=== PATIENT | female | born 1940 | race Caucasian/White ===

== ENCOUNTER 2019-11-03 10:13 | Outpatient (CLI) | payer MEDICARE ==
--- NOTE | 2019-11-03 15:16 | CONSULTATION NOTE ---
Palliative Care Consultation - Referral Referring Provider: Dr. 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 The patient had previously been residing with her nephew, Urbano who has been her primary caregiver for the last 9 years. She has been receiving supplemental caregiving within the home so that she had supervision as her dementia progressed. However, she demonstrated resistance to care with several home caregivers. She typically 90% of the time would not have any episodes of agitation with her nephew, Urbano. There is one episode that Urbano recalls that she threw a broom at home and often felt that he was treating her like a child. Even while living with her nephew she would "run away" from home on several occasions. The patient's nephew reports that he noted an increase in cognitive deficits after the patient sustained 2 myocardial infarctions with 3 stents. 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 Urbano reports that the patient began not being able to do tasks that she was previously able to preform such as sending emails. It was becoming harder for the nephew to care for the patient at home and he requested assistance and the patient is currently on [place] PES program. While the nephew was unfortunately hospitalized due to his own health, the patient's was resistant to care and ultimately was hospitalized at [facility] in [place] for approximately 1 month before placement was able to be made at [facility] and she transferred to in September 2019. Staff report that the patient has done well within the facility more so in the last few weeks after she moved to a more functionally active pod within the facility.Caregivers report that the patient at the start of a shift will have "stranger danger" that will subsequently subside and she is receptive to hygiene and caregiving assistance as the day progresses and becomes more comfortable with the staff. Often times in the morning she refused to change out of her pajamas. In the past she has refused to change clothes for over 14 days despite cueing from caregivers within the home. Overall, staff deny any acute behavioral concerns. There is been no change in her weight. She presently weighs 162.8 pounds. She consumes 100% of her meals. 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 Endocrine/Autoimmune: reports: None MRSA Hx?: No Other Past Medical History: [place] Palsy - Past Surgical History General: reports: Other (Tonsillectomy) Cardiovascular: reports: Other (BMS with aspiration fo thrombectomy of RCA 07/2010; JEANCARLOS of ostial LM and AV groove CFX) - Substance History Use: Uses substance without health or social issues: NONE (Former cigarette smoker) Social History - Living Situation Living arrangement: Assisted living Support System: The patient was born in [facility] and then at the age of 6 or 7 her family relocated to [facility].The patient resided in [place] until her 20s. The patient has never and has no children. She has a younger brother and sister, both of whom are living but are not involved in her care. Her health care management has fallen to her nephew, Urbano Bolanos ([phone]) who was designated as her D POA for healthcare decisions.Her nephew, Urbano reports that there was paperwork that designated him as healthcare power of document review attorney but the patient accidentally shredded this believing it was a different document. The patient has always lived with either her mother or her nephew until the last few months. She has solely lived with her nephew Urbano for the last 9 years after her mother with caregiver assistance. 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 The patient is on CO PES and has a design coordinator, Betty at [phone]. Family History - Family History Family History: Mother: , Father: Family History Comment/Other: Brother, alive: [place], Melanoma Sister, alive: [place] Mother: [place] Father: brain aneurysm Medications/Allergies - Medications Home Medications: Ambulatory Orders Medication Instructions Recorded Confirmed Acetaminophen [Tylenol] 325 mg PO Q6H PRN 11/03/19 11/03/19 Aspirin 81 mg PO DAILY 11/03/19 11/03/19 Bisacodyl Supp [Dulcolax Supp] 10 mg MN DAILY PRN MDD if no BM 11/03/19 11/03/19 after MOM Carvedilol [Coreg] 25 mg PO BID 11/03/19 11/03/19 LORazepam [Ativan] 0.5 mg PO Q8H PRN 11/03/19 11/03/19 Lisinopril [Zestril] 20 mg PO DAILY 11/03/19 11/03/19 Loperamide [Imodium] PRN MDD NTE 8tabs/day 11/03/19 Magnesium Hydroxide [Milk of 30 ml PO DAILY PRN MDD if NO BM in 11/03/19 11/03/19 Magnesia] 3 days Quetiapine Fumarate 50 mg PO .AM AND MIDDAY 11/03/19 11/03/19 Quetiapine Fumarate 150 mg PO QPM 11/03/19 11/03/19 Rosuvastatin Calcium 10 mg PO DAILY 11/03/19 11/03/19 - Allergies Allergies/Adverse Reactions: Allergies Allergy/AdvReac Type Severity Reaction Status Date / Time Penicillins Allergy Unknown Verified 11/03/19 17:16 Review of Systems - Constitutional Constitutional: reports: Weight stable. denies: Fatigue, Fever - Eyes Eyes: denies: Corrective lenses - Ears, Nose & Throat Ears, Nose & Throat: denies: Hearing loss - Cardiovascular Cardiovascular: denies: Palpitations, Chest pain - Respiratory Respiratory: denies: Cough, Wheezing - Gastrointestinal Gastrointestinal: reports: Good appetite. denies: Abdominal pain, Constipation, Diarrhea - Genitourinary Genitourinary: denies: Dysuria - Musculoskeletal Musculoskeletal: denies: Assistive devices - Integumentary Integumentary: denies: Rash - Neurological Neurological: reports: Memory problems - Psychiatric Psychiatric: reports: Behavior disturbances. denies: Depression - Endocrine Endocrine: denies: Diabetes type 2 - Hematologic/Lymphatic Hematologic/Lymphatic: denies: Recurrent infections - All Other Systems All Other Systems: reports: Reviewed and negative (ROS limited as patient is a poor historian due to dementia.) Physical Exam - Vital Signs Temperature: 36.5 C - Physical Exam General Appearance: positive: No acute distress, Alert, Other (well groomed,) Eyes Bilateral: positive: Normal inspection ENT: positive: No signs of dehydration Respiratory: positive: Other (visible even fall and rise of chest with no audible adventagous sounds) Abdomen: positive: Obese Skin: positive: Other (visible skin intact) Extremities: positive: Other (no visible BLE edema) Neurologic/Psychiatric: positive: Disoriented to place, Disoriented to time, Other (conversant and pleasant until asked to assess with exam and vital signs--at that time became suspicious and declined evaluation and was adamant "it doesn't need to be done.") Palliative Care - POLST Patient has POLST: No Pain: No pain Nausea: None Anorexia: None Sleep: Sleeps well Constipation: No Performance Status: The patient is ambulatory without an assistive device. No recent falls. She has a history of paranoia and agitation that is presently controlled due to dementia. She requires assistance with continence care. She is continent of bowel and bladder. She is able to self feed. FAST 6B - Palliative Care Discussion: This is a 78-year-old female who has had a progressive cognitive decline over the last decade. She has developed behavioral disturbances due to her dementia such as agitation and paranoia. Presently her symptoms are controlled with quetiapine as routinely scheduled. The patient had been residing with her nephew who is acting responsible republican for the patient. The patient has 2 living siblings, a younger brother and sister, but due to hostile feelings the patient has not had contact or interaction with the siblings. Her nephew, Urbano has been overseeing her medical management and she had lived with him for 9 years until she transitioned to [facility] in September 2019. He had notarized documents obtained from his father and other aunt stating that they do not wish to participate in the patient's care and is looking to request copies of these letters for documentation given the patient had a healthcare power of document review attorney directive that she subsequently shredded.The patient demonstrates hesitancy to meeting new people and was resistant to a physical examination by this CARBURIZING FURNACE OPERATOR today.She presently does not have an official D POA and does not have a POLST on file. Impression and Recommendations - Palliative Care Impression: This is a 78-year-old woman with moderate dementia, likely mixed given her significant Cardiovascular history of multiple MIs and PAD, F AST 6B. She is displayed in the past episodes of agitation and has responded well to quetiapine for symptom management. She does present with paranoia and a suspicious nature due to her underlying dementia but has been redirectable according to staff report. Palliative care to continue to build rapport, explore goals of care, and provide symptom management and anticipatory guidance. Recommendations/Counseling Done: 1. Dementia, likely mixed with behavioral disturbance. Chronic. Progressive. Supportive Care. Fall precautions. On no disease modifying agents. Continue Quetiapine 50mg at 8AM and 1400 and 150mg at bedtime. Has a history of agitation and wandering as well as noted paranoia on examination today. Add Lorazepam 0.5 mg administer every 8 hours as needed for agitation or anxiety due to patient's past behavioral reports so it is available if patient becomes distressed. Reviewd purpose, dose and side effects of lorazepam with nephew and in agreement to proceed. Given the patient's age, dementia and chronic co-morbidities, a gradual decline is expected. 2. CAD. s/p [place]. No cardiac awareness. Continue ASA 81mg daily for cardiac prophylaxis. Continue coreg 25mg BID and rosuvastatin 10mg as ordered. 3. HTN. Continue lisinopril 20mg as ordered. Unable to assess blood pressure today due to patient's resistance despite multiple varied attempts. Continue to monitor BP trends and adjust antihypertensive medications as needed. 4. Advanced care planning. Amrit's nephew, Urbano has been acting as DPOA and has notarized paperwork from the patient's siblings stating that they decline to participate in her care. The patient herself does not have insight into her medical conditions or management. Urbano is going to obtain these letters to provide to palliative care for decision making moving forward. Discussed following up with Betty at [facility] regarding if should move forward with possible guardianship or if legally the notarized paperwork from the siblings would be appropriate in the healthcare agent hierarchy to default to Urbano. Provided supportive listening. Offered palliative care social work for support and assistance and Urbano in agreement and will refer. Time Spent: Total time spent 30 with greater than 50% of time spent in counseling and coordination of care with patient and caregiving staff at facility; examination of the patient; medication reconciliation; symptom management and anticipatory guidance. Spent 35 minutes on chart review of prior medical records. CPT 16333 POC reviewed with nephew/stated Urbano WILKINS via phone and in agreement with POC and reviewed palliative philosophy. disclaimer: The chart note was formulated using voice recognition technology and unfortunately sound alike errors may occur.
== END 2019-11-03 10:14 | disposition home or self-care (01) ==
LOC: PC 10:13
PROVIDERS: ATTEND Family Medicine
DX: Z51.5 Encounter for palliative care (principal); F03.91 Unspecified dementia, unspecified severity, with behavioral disturbance; I25.10 Atherosclerotic heart disease of native coronary artery without angina pectoris; I10 Essential (primary) hypertension; I25.2 Old myocardial infarction; Z79.899 Other long term (current) drug therapy; Z79.82 Long term (current) use of aspirin
CPT/HCPCS: 99358

== ENCOUNTER 2019-12-18 09:40 | Outpatient (CLI) | payer MEDICARE ==
--- NOTE | 2019-12-18 12:25 | CONSULTATION NOTE ---
Palliative Care Follow Up - Referral Referring Provider: Dr. Chema Morrison Time of Visit: [id number] Referral setting: Assisted living Referral Reason: Skin changes feet/Blister left foot/Dementia - Information Sources Records reviewed: Previous records reviewed History/Review of Systems obtained from: Patient, Family (nephew via Urbano hampton), Nursing Exam limitations: Clinical condition (Advanced dementia) - History of Present Illness Update Brief HPI Update: This is a 79-year-old female who was seen and evaluated today at [facility] unit for evaluation of lower extremity edema, blister to left foot, skin changes to feet and dementia with behavioral disturbances. Staff reports that the patient developed some changes to her to her feet over the past few days and developed some blisters.She developed a blister to her left dorsal aspect of her foot that subsequently has popped. Nursing staff wishes for this to be evaluated. It is difficult at times to assess the patient as she can be resistant to care. She has a history of being agitated and combative. She was hospitalized at [facility] in [place] for approximately 1 month and due to multiple circumstances before her placement at [facility] in September 2019.The staff report at times the patient can be redirected or Enticed with liquids or food for cooperation. She is presently on quetiapine 50 mg in the morning, 50 mg in the afternoon and 150 mg in the evening. The patient has not been wearing shoes for approximately 1 month and has been wearing nonskid socks. The blister that has opened is getting stuck to the socks as the patient is not allowing for her routine care to the site. No evidence of spreading redness reported by the staff. She has had a rash under her breasts for approximately 1 month and has been receiving nystatin powder application. Staff reports that this will improve and then reappear again. Nephew reports that the patient does not have a history of diabetes or impaired fasting glucose when last evaluated approximately 1 year ago. The patient has some evidence of lower extremity edema with blistering. She typically sits out in the common area during the day without her feet being elevated. Her weight has remained stable presently at 162.8 pounds.Her nephew reports that for most of her life she has weighed greater than 180 pounds. She has been as low as 155lb. Today, the patient is seen in the common area in a side chair with her arms folded across her chest and one leg propped up over the arm of the chair. She is reluctant to be evaluated and resistant to having her vital signs taken. Patient has a past medical history of SMA stenosis, myocardial infarction x2 with stenting, coronary artery disease, hypertension, peripheral arterial disease agitation, hearing loss. Social History - Living Situation Living arrangement: Assisted living Support System: The patient was born in [facility] and then relocated when she was of school-age to [facility]. The patient resided in [place] until her 20s. She is never nor had any children. She has a brother and sister, both of whom are living but are not involved in her care. Her health care m anagement has fallen to her nephew, Urbano Bolanos at [phone] who is her designated D POA. The patient's siblings have each provided notarized documentation for fitting their rights to making medical decisions on the patient.The patient has only ever lived independently for approximately 2 years. Otherwise, she lives with her mother or her nephew. The patient is on [place] PES and has a car servicer, Betty at [phone]. Medications/Allergies - Medications Home Medications: Ambulatory Orders Medication Instructions Recorded Confirmed Acetaminophen [Tylenol] 325 mg PO Q6H PRN 11/03/19 11/03/19 Aspirin 81 mg PO DAILY 11/03/19 11/03/19 Bisacodyl Supp [Dulcolax Supp] 10 mg MD DAILY PRN MDD if no BM 11/03/19 11/03/19 after MOM Carvedilol [Coreg] 25 mg PO BID 11/03/19 11/03/19 LORazepam [Ativan] 0.5 mg PO Q8H PRN 11/03/19 11/03/19 Lisinopril [Zestril] 20 mg PO DAILY 11/03/19 11/03/19 Loperamide [Imodium] PRN MDD NTE 8tabs/day 11/03/19 Magnesium Hydroxide [Milk of 30 ml PO DAILY PRN MDD if NO BM in 11/03/19 11/03/19 Magnesia] 3 days Quetiapine Fumarate 50 mg PO .AM AND MIDDAY 11/03/19 11/03/19 Quetiapine Fumarate 150 mg PO QPM 11/03/19 11/03/19 Rosuvastatin Calcium 10 mg PO DAILY 11/03/19 11/03/19 Nystatin 1 applic TP BID 12/18/19 12/18/19 - Allergies Allergies/Adverse Reactions: Allergies Allergy/AdvReac Type Severity Reaction Status Date / Time Penicillins Allergy Unknown Verified 11/03/19 17:16 Review of Systems - Constitutional Constitutional: reports: Weight stable (weight 162.8lb). denies: Fever - Eyes Eyes: denies: Corrective lenses - Ears, Nose & Throat Ears, Nose & Throat: reports: Hearing loss - Cardiovascular Cardiovascular: reports: Edema. denies: Palpitations, Chest pain - Respiratory Respiratory: denies: Cough, SOB at rest - Gastrointestinal Gastrointestinal: reports: Good appetite. denies: Abdominal pain, Constipation, Diarrhea - Genitourinary Genitourinary: denies: Dysuria - Musculoskeletal Musculoskeletal: denies: Joint pain, Assistive devices - Integumentary Integumentary: reports: Rash (rash to toes and under breasts), Other (open blister to left foot) - Neurological Neurological: reports: Memory problems - Psychiatric Psychiatric: reports: Aggitation - Endocrine Endocrine: denies: Diabetes type 2 - Hematologic/Lymphatic Hematologic/Lymphatic: denies: Recurrent infections - All Other Systems All Other Systems: reports: Reviewed and negative (ROS limited as patient is a poor historian due to dementia.) Physical Exam - Physical Exam General Appearance: positive: No acute distress, Alert, Other (well groomed and appears stated age; nonskid socks on feet) Eyes Bilateral: positive: Normal inspection ENT: positive: Hearing loss Neck: positive: No JVD, Trachea midline Cardiovascular: positive: Regular rate & rhythm, Other (unable to palpate pedal pulses due to edema) Respiratory: positive: No respiratory distress, Breath sounds nml. negative: Rales Abdomen: positive: Non-tender, Soft, Nml bowel sounds, Obese Skin: positive: Other ((1)open blister appx 2cm x 3cm to dorsal aspect of left foot that is pink and without slough that is well approximated without surrounding erythema (2) Declined evaluation of skin under bliateral breasts (3) erythema to base of toes and between digits consistent with Candidiasis) Extremities: positive: Pedal edema (+1 BLE edema with noted small blisters to the dorsal aspect close to toes on right foot) Neurologic/Psychiatric: positive: Disoriented to place, Disoriented to time, Other (Suspicious and underlying paranoia) Comments/Other: Refused vital signs Palliative Care - POLST Patient has POLST: Yes POLST Status: DNR, Selective Treatment Pain: No pain Constipation: No Performance Status: Patient is ambulatory without any assistive device. No recent falls. She has a history of paranoia and agitation due to dementia. She requires assistance with continence care. She is continent of bowel and bladder. She is able to self feed. F AST 6B - Palliative Care Discussion: The patient has had a progressive cognitive decline over the last decade. She developed behavioral disturbances due to her dementia with agitation and paran oia. Her symptoms are overall controlled with quetiapine routinely scheduled and becoming familiar with her caregivers within her assisted living environment.The patient's nephew, Urbano has been overseeing her medical management as she has lived with him for the last 9 years until she transition to [facility] in September 2019. Palliative care has to notarized documents from the patient's brother and sister relating that they do not wish to participate in the medical management of the patient as the siblings are all estranged. Therefore, the patient's nephew is her next of kin and therefore may act as her healthcare agent. Reviewed POLST today with patient's nephew. Patient's nephew grappling with making decisions as the patient would deflect and never wish to make a decision. This was also demonstrated by the fact that she never lived independently for most of her life. Upon review of POLST nephew, Urbano elects to move forward with patient as DN AR with selective treatment, antibiotic therapy for symptom management and defers regarding artificial nutrition by tube at the present time and wishes to address if the situation arises. Impression and Recommendations - Palliative Care Impression: This is a 78-year-old female with advanced dementia, likely mixed given her cardiovascular history with multiple MIs and PAD, F AST 6B.Then blister to her left Today she demonstrated signs of agitation as she did not wish to have a physical exam. She has lower extremity edema with a dorsal foot requiring home health nursing for further management. Palliative care to continue to explore goals of care and provide symptom management and anticipatory guidance. Recommendations/Counseling Done: 1. Bilateral lower extremity edema. History of PAD per cardiology notes with no GOLDY on file. No history of congestive heart failure. Initiate ALISA hose to be applied every morning and removed 2 PM for reduction of edema. Request that facility when they measure the patient if she is in between sizes to go with the largest size.Request that home health nursing to be involved for management and to perform GOLDY and if GOLDY equal to or greater than 0.8 to apply 2 layer light compression wraps to the lower extremities. Continue to monitor. 2. Skin candidiasis to feet as well as under breasts. Continue nystatin powder as ordered under bilateral breasts. Initiate nystatin powder application twice daily to bilateral feet and between toes until symptoms resolve. Patient does not have a history of diabetes mellitus. If no improvement after 1 month or notified sooner if worsening symptoms then consider evaluation with hemoglobin A1c and if resistant to treatment administration of difclucan with statin being held for resolution. 3. Blister to left dorsal foot. Likely due to underlying edema. Cleanse site with normal saline, pat dry, apply triple antibiotic ointment to site and cover with foam border dressing every 3 days or as needed if saturated. Request home health nursing to follow for management. 4. Coronary artery disease. Status post SD. No cardiac awareness. Continue aspirin 81 mg daily for cardiac prophylaxis. Continue Coreg 25 mg twice daily and rosuvastatin 10 mg daily as ordered. 5.Dementia, likely mixed with behavioral disturbances. Chronic. Progressive. Supportive care. Fall precautions. On no disease modifying agents. Continue quetiapine 50 mg in the a.m. and afternoon with 150 mg at bedtime. Has used Lorazepam 0.5 mg 3 times in the last 30 days and no need for further adjustment at this time. Given the patient's age, dementia and chronic comorbidities a gradual decline as expected. 6.Advance care planning. ERIKA reviewed with Urbano lovell who is healthcare agent as authorized by [facility] [phone] as the patient's siblings have notarized documents indicated they do not want involvement in the patient's care. Provided copies of these notarized documents to [facility]. ERIKA completed as DN AR with selective measures. This was performed over the phone with verbal consent. To send a copy to Urbano who is aware that he needs to sign and return to palliative care to formalize the document.Supportive listening provided. FACE TO FACE: It would be extremely taxable event for the patient to leave the facility and requires home health nursing for management of lower extremity edema and open blister to her left foot for wound management. Request that home health nursing perform GOLDY and apply a 2 layer light compression wrap to lower extremities if GOLDY is greater than or equal to 0.8 Time Spent: CPT 14538 Plan of care reviewed with nursing staff with understanding verbalized. Provided notarized documents to [facility] to have on file as well as original document of POLST completed with liliya/Urbano HERRERA. Plan of care reviewed with Urbano lovell via phone and in agreement with plan moving forward. Questions answered and addressed. Disclaimer: The chart note was formulated using voice recognition technology and unfortunately sound alike errors may occur.
== END 2019-12-18 09:41 | disposition home or self-care (01) ==
LOC: PC 09:40
PROVIDERS: ATTEND Nurse Practitioner Family
DX: Z51.5 Encounter for palliative care (principal); F03.90 Unspecified dementia, unspecified severity, without behavioral disturbance, psychotic disturbance, mood disturbance, and anxiety; R60.0 Localized edema; B37.2 Candidiasis of skin and nail; L98.8 Other specified disorders of the skin and subcutaneous tissue; E11.9 Type 2 diabetes mellitus without complications; I10 Essential (primary) hypertension; I73.9 Peripheral vascular disease, unspecified; H91.90 Unspecified hearing loss, unspecified ear; I25.10 Atherosclerotic heart disease of native coronary artery without angina pectoris; I25.2 Old myocardial infarction; Z66 Do not resuscitate; Z95.5 Presence of coronary angioplasty implant and graft; Z79.82 Long term (current) use of aspirin

== ENCOUNTER 2020-03-08 13:10 | Outpatient (CLI) | payer MEDICARE ==
--- NOTE | 2020-03-08 17:15 | CONSULTATION NOTE ---
Palliative Care Follow Up - Referral Referring Provider: Dr. Chema Morrison Time of Visit: Initated 1309 Referral setting: Assisted living Referral Reason: Dementia/Weight gain - Information Sources Records reviewed: Previous records reviewed History/Review of Systems obtained from: Patient, Caregiver, Nursing Exam limitations: Clinical condition (Advanced Dementia) - History of Present Illness Update Brief HPI Update: This is a 79-year-old female who was seen in follow-up today at [facility] for follow-up regarding dementia with behavioral disturbances, weight gain, and blister to left leg. The patient has a history of developing blisters to her lower extremities. In December 2019 she was initiated on home health nursing due to a blister to her left dorsal foot with subsequent resolution. Reported on 02/16 the patient had a large blister to her left lower extremity with multiple blisters. She has been compliant overall with her compression stockings. She was initiated on local wound care with wall Aquacel Ag and Mepilex border dressing to be changed every 3 days. This has subsequently resolved. The patient would not allow this [facility] to assess her lower extremities with removal of her compression hose on examination today. The patient has had a trend up in her weight since moving into [facility]. She is presently on meal monitoring and typically consumes 100% of her meals. Staff reports that she is someone who prefers to stay in place and it is difficult for them to get her up if it is not her own accord and desire.The patient weight approximately 160 pounds upon her admission to [facility]. Her present weight is hovering around 180 pounds.She does have some lower extremity edema and his order to have application of compression stockings to be placed in the a.m. and removed in the p.m. The patient is often seen sitting in a primary chair in the common area with 1 leg dangling over the armrest with no elevation to her lower extremities. Staff report that they have not noticed an increase in her lower extremity edema from her typical baseline. The patient has a history of being agitated and combative. She was hospitalized at [facility] in [place] for approximately 1 month due to multiple circumstances before her placement at [facility] in September 2019. The patient has a good rapport with certain members of the staff and will be open to redirection from those particular individuals. At other times she will be resistant to suggestions and become agitated with staff by trying to strike out. She is presently on quetiapine 50 mg in the morning, 50 mg in the afternoon, and 150 mg in the evening. She has an order for as needed Lorazepam that has not been administered upon review of the MAR. There is a another resident in home place that the patient typically will respond to if he offer suggestions, Roscoe. The staff report that "love-hate relationship." The patient is seen sitting in her usual chair in the common area with a blanket over her legs. Both legs are situated on the floor. As she is resistant to allowing this LEAD SPRINKLER to take her vital signs this was obtained prior to the visit by facility staff. She is initially suspicious and reluctant to be evaluated stating "I do not need that." Past Medical History: Patient has a past medical history of SMA stenosis, myocardial infarction x2 with stenting, coronary artery disease, hypertension, peripheral artery disease, agitation, hearing loss, dementia. Social History - Living Situation Living arrangement: Assisted living Support System: The patient never and has no children. She has a brother and sister, both who are living but are not involved in her care. Her health care management has fallen to her nephew, Urbano Bolanos at [phone] who is her designated D POA. The patient has only ever lived independently for approximately 2 years. Otherwise her entire life she is either live with her mother who is now or her nephew. The patient has been on CO PES and has a finance business partner, Betty at [phone]. Medications/Allergies - Medications Home Medications: Ambulatory Orders Medication Instructions Recorded Confirmed Acetaminophen [Tylenol] 325 mg PO Q6H PRN 11/03/19 03/09/20 Aspirin 81 mg PO DAILY 11/03/19 03/09/20 Bisacodyl Supp [Dulcolax Supp] 10 mg VT DAILY PRN MDD if no BM 11/03/19 03/09/20 after MOM Carvedilol [Coreg] 25 mg PO BID 11/03/19 03/09/20 LORazepam [Ativan] 0.5 mg PO Q8H PRN 11/03/19 03/09/20 Lisinopril [Zestril] 20 mg PO DAILY 11/03/19 03/09/20 Loperamide [Imodium] PRN MDD NTE 8tabs/day 11/03/19 Magnesium Hydroxide [Milk of 30 ml PO DAILY PRN MDD if NO BM in 11/03/19 03/09/20 Magnesia] 3 days Quetiapine Fumarate 50 mg PO .AM AND MIDDAY 11/03/19 03/09/20 Quetiapine Fumarate 150 mg PO QPM 11/03/19 03/09/20 Rosuvastatin Calcium 10 mg PO DAILY 11/03/19 03/09/20 Nystatin 1 applic TP BID 12/18/19 03/09/20 - Allergies Allergies/Adverse Reactions: Allergies Allergy/AdvReac Type Severity Reaction Status Date / Time Penicillins Allergy Unknown Verified 11/03/19 17:16 Review of Systems - Constitutional Constitutional: reports: Weight gain (weight around 180lb). denies: Fever - Eyes Eyes: denies: Corrective lenses - Ears, Nose & Throat Ears, Nose & Throat: reports: Hearing loss. denies: Hearing aids - Cardiovascular Cardiovascular: denies: Palpitations - Respiratory Respiratory: denies: Cough - Gastrointestinal Gastrointestinal: reports: Good appetite. denies: Constipation, Diarrhea, Vomiting - Genitourinary Genitourinary: reports: Incontinence. denies: Dysuria - Musculoskeletal Musculoskeletal: denies: Joint pain, Assistive devices - Integumentary Integumentary: denies: Other (blister to LLE resolved per nursing) - Neurological Neurological: reports: Memory problems - Psychiatric Psychiatric: reports: Anxiety, Aggitation - Endocrine Endocrine: denies: Diabetes type 2 - Hematologic/Lymphatic Hematologic/Lymphatic: denies: Recurrent infections - All Other Systems All Other Systems: reports: Reviewed and negative (ROS is limited as patient is a poor historian due to dementia. ROS supplemented by caregiving staff and nursing.) Physical Exam - Vital Signs Temperature: 97.1 C Pulse Rate: 70 Respiratory Rate: 20 O2 Saturation: 94 (on RA) Blood Pressure: 106/56 - Physical Exam General Appearance: positive: No acute distress, Alert, Other (well groomed and appears stated age) Eyes Bilateral: positive: Normal inspection ENT: positive: No signs of dehydration Neck: positive: Trachea midline Cardiovascular: positive: Regular rate & rhythm Respiratory: positive: No respiratory distress, Breath sounds nml. negative: Rales Abdomen: positive: Non-tender, Soft, Nml bowel sounds, Obese Skin: positive: Other (Compression stockings to BLE--patient would not allow for removal of stockings to evaluate skin--please see nursing notes for full details) Extremities: positive: Pedal edema (+1 BLE edema with compression stockings noted on quick assessment as the patient was resistant to examination) Neurologic/Psychiatric: positive: Disoriented to place, Disoriented to time, Other (Suspicious regarding evaluation and swatted at hands when attempted initial assessment. Patient was open more to assessment after commonly engaging and making remarks about a movie that was on the TV and calmly sitting together.) Palliative Care - POLST Patient has POLST: Yes POLST Status: DNR, Selective Treatment Pain: No pain Constipation: No Performance Status: She is ambulatory without any assistive device. No history of falls. She has a history of paranoia and agitation due to dementia. She requires assistance with continence care which she is resistant to. She has episodes of incontinence with her bladder. She is continent of bowel. She is able to self feed. FAST 6C - Palliative Care Discussion: The patient has had a progressive cognitive decline over the past decade. She has developed behavioral disturbances due to her dementia with agitation and paranoia. She is maintained on routine quetiapine. She responds better to certain caregivers within the assisted living environment that she is familiar with to allow for care. Patient would likely benefit from augmentation with an antidepressant, such as an SSRI for underlying anxiety and agitation. Her nephew/Urbano HERRERA reports that the patient did not tolerate citalopram. He also reports that have been multiple medications tried in the past but does not recall the previous names and will look into this. The patient herself Gordon quite content in her present surroundings. She has a sand shoveler that she has a "love-hate relationship with per the staff report. The patient is consistently resistant to continent care and the staff have to be creative in order to provide assistance and avoid her developing agitation. The patient has consistently been resistant to physical assessment by this LEAD SPRINKLER with repeated suspicion. The patient responded to sand shoveler like presence and after time had elapsed was open to allowing a more thorough physical assessment. Impression and Recommendations - Palliative Care Impression: This is a 79-year-old female who has Moderate dementia, likely mixed given her significant cardiovascular history with a history of being agitated and combative. Presently overall controlled on quetiapine. Noted weight gain with a voracious appetite. Palliative care to continue to build rapport, provide symptom management and anticipatory guidance. Recommendations/Counseling Done: 1. Weight gain. Patient's weight approximately 180 pounds. Has had an approximate 20 pound weight gain since her admission to home [facility]. Meal monitoring indicates that the patient is consuming typically 100% of her meals. Likely multifactorial in nature given her sedentary lifestyle, consistent meal consumption, and some underlying lower extremity edema. Her lower extremity edema appears to be at baseline. If patient has noted increase in lower extremity edema then would consider low-dose diuretic please see diagnosis as noted below. May consider small portions with multivitamin in the future if noted that the patient's underlying dementia is contributing to her forgetting that she has consumed a meal. Continue to monitor weight trends. 2. Bilateral lower extremity edema. No history of congestive heart failure. Lower extremity edema appears to be at baseline. No adventitious lung sounds noted on evaluation. Difficult he with the patient's elevating her lower extremities while at rest due to her underlying dementia. Continue to apply compression hose every morning and remove in the evening for reduction of edema. Continue to monitor weight trends. If noted increase of lower extremity edema and discomfort may consider low-dose diuretic therapy such as furosemide 20 mg for reduction of edema. Continue to monitor. 3. Blister to left lower extremity. Resolved per nursing report. Patient would not allow LEAD SPRINKLER to assess. 4. Dementia, likely mixed with behavioral disturbances. Chronic. Progressive. Supportive care. Fall precautions. On no disease modifying agents. Continue quetiapine 50 mg in the a.m., 50 mg in the afternoon, and 150 mg at bedtime. Max daily dose of quetiapine 300 mg daily. No documented use of Lorazepam for agitation. Given the patient's underlying agitation and likely anxiety would benefit from an SSRI. Patient's nephew/D POA reports that she did not tolerate citalopram. Would consider sertraline as a trial in the future. Given the patient's advanced age, dementia and chronic comorbidities a gradual decline as expected. Time Spent: CPT 60280 Plan of care reviewed with nursing staff with understanding verbalized. Contacted patient's nephew/D ELENAAUrbano via phone and updated regarding the plan of care. Unable to fully discuss entire plan of care as stopped was not fully available. Plan to follow-up for further discussion and Urbano to determine previous antidepression/antianxiety medication that the patient has been on prior and not responded to. Questions answered and addressed. Disclaimer: The chart note was formulated using voice recognition technology and unfortunately sound alike errors may occur.
== END 2020-03-08 13:11 | disposition home or self-care (01) ==
LOC: PC 13:10
PROVIDERS: ATTEND Nurse Practitioner Family
DX: Z51.5 Encounter for palliative care (principal); F03.91 Unspecified dementia, unspecified severity, with behavioral disturbance; R63.5 Abnormal weight gain; R60.0 Localized edema; R23.8 Other skin changes; Z79.899 Other long term (current) drug therapy; Z66 Do not resuscitate

== ENCOUNTER 2020-05-05 09:30 | Outpatient (CLI) | payer MEDICARE, MEDICAID ==
--- NOTE | 2020-05-05 11:48 | CONSULTATION NOTE ---
Palliative Care Follow Up - Referral Referring Provider: Dr. Chema Morrison Time of Visit: In929 Referral setting: Assisted living Referral Reason: Dementia with behavioral disturbances\weight gain - Information Sources Records reviewed: Previous records reviewed History/Review of Systems obtained from: Patient, Caregiver, Nursing Exam limitations: Clinical condition (Advanced dementia) - History of Present Illness Update Brief HPI Update: This is a 79-year-old female who was seen in follow-up today at [facility] for follow-up regarding dementia with behavioral disturbances and weight gain. The patient has a resolved blister to her left lower extremity that has been receiving Aquacel Ag and Mepilex border dressing. Unable to assess this area today as the patient has her compression hose 1 and thermal leggings that will not roll up. The patient did not wish to move from her present spot in the common area to her room. The patient has had a weight gain since moving into home [facility]. She continues to typically consume 100% of her meals. Her weight was approximately 160 pounds upon admission. She is now presently down to 178.6 pounds which is an improvement from prior noted 180 pounds. She does have lower extremity edema and is allowing staff to apply compression stockings in the morning and removed in the evening. Staff will also encourage the patient to elevate her legs when she is sitting in her preferred chair in the common area. However, she likes to cross her legs at the ankles when her legs are elevated. Patient has a history of being agitated and combative. She was hospitalized at [facility] in [place] for approximately 1 month due to multiple circum stances before her placement at [facility] in September 2019. No behavioral concerns reported at the present time outside of her reluctance to allow pericare by facility staff. She continues on quetiapine 50 mg in the morning, 50 mg in the afternoon and 150 mg in the evening. She does have an order for as needed lorazepam that has not needed to be administered upon review of MAR. The patient does have some noted intermittent constipation. Bowel movement ranging from 2 to 4 days. She does have as needed orders for bowel stimulants if she is constipated. However, would benefit from further intervention for prevention of constipation. The patient is sitting in a common chair in the common area with a blanket over her legs with her legs dependent on the floor. At first she was resistant to this SAMPLE TAKER OPERATOR seeing her but warmed up after sitting in her presence and talking about [place] for a length of time. Past Medical History: Patient has a past medical history of SMA stenosis, myocardial infarction x2 with stenting, coronary artery disease, hypertension, peripheral arterial disease, agitation, hearing loss, dementia. Social History - Living Situation Living arrangement: Assisted living Support System: The patient has never and has no children. She has a brother and a sister, both who are living but are not involved in her care. Her health care management has fallen to her nephew, Urbano Bolanos at [phone] who is her designated DPOA. The patient has only ever lived independently for approximately 2 years. Otherwise her entire life she is either live with her mother before her or her nephew. [facility] 2019. The patient has been on CO PES and has a core worker, Betty at [phone]. Her nephew, Urbano continues to call to speak to her regularly on the telephone. Medications/Allergies - Medications Home Medications: Ambulatory Orders Medication Instructions Recorded Confirmed Acetaminophen [Tylenol] 325 mg PO Q6H PRN 11/03/19 03/09/20 Aspirin 81 mg PO DAILY 11/03/19 03/09/20 Bisacodyl Supp [Dulcolax Supp] 10 mg MD DAILY PRN MDD if no BM 11/03/19 03/09/20 after MOM Carvedilol [Coreg] 25 mg PO BID 11/03/19 03/09/20 LORazepam [Ativan] 0.5 mg PO Q8H PRN 11/03/19 03/09/20 Lisinopril [Zestril] 20 mg PO DAILY 11/03/19 03/09/20 Loperamide [Imodium] PRN MDD NTE 8tabs/day 11/03/19 Magnesium Hydroxide [Milk of 30 ml PO DAILY PRN MDD if NO BM in 11/03/19 03/09/20 Magnesia] 3 days Quetiapine Fumarate 50 mg PO .AM AND MIDDAY 11/03/19 03/09/20 Quetiapine Fumarate 150 mg PO QPM 11/03/19 03/09/20 Rosuvastatin Calcium 10 mg PO DAILY 11/03/19 03/09/20 Nystatin 1 applic TP BID 12/18/19 03/09/20 - Allergies Allergies/Adverse Reactions: Allergies Allergy/AdvReac Type Severity Reaction Status Date / Time Penicillins Allergy Unknown Verified 11/03/19 17:16 Review of Systems - Constitutional Constitutional: reports: Weight stable (weight 178.6lb). denies: Fever - Eyes Eyes: denies: Corrective lenses - Ears, Nose & Throat Ears, Nose & Throat: reports: Hearing loss. denies: Hearing aids, Dentures, Dry mouth - Cardiovascular Cardiovascular: reports: Edema. denies: Chest pain - Respiratory Respiratory: denies: Cough - Gastrointestinal Gastrointestinal: reports: Constipation (intermittent with defecation every 2- 4days), Good appetite. denies: Diarrhea, Vomiting - Genitourinary Genitourinary: reports: Incontinence. denies: Dysuria - Musculoskeletal Musculoskeletal: denies: Assistive devices - Neurological Neurological: reports: Memory problems - Psychiatric Psychiatric: reports: Anxiety, Aggitation (controlled) - Endocrine Endocrine: denies: Diabetes type 2 - All Other Systems All Other Systems: reports: Reviewed and negative (ROS is limited as patient is a poor historian due to dementia. ROS supplemented by caregiving staff and nursing.) Physical Exam - Vital Signs Temperature: 35.9 C Pulse Rate: 97 O2 Saturation: 97 (on RA) Blood Pressure: 109/64 - Physical Exam General Appearance: positive: No acute distress, Alert, Other (appears stated age, sitting in common area) Eyes Bilateral: positive: Normal inspection ENT: positive: No signs of dehydration, Other (missing teeth) Neck: positive: Trachea midline Cardiovascular: positive: Regular rate & rhythm Respiratory: positive: No respiratory distress, Breath sounds nml Abdomen: positive: Non-tender, Soft, Nml bowel sounds, Obese Skin: positive: Other (Compression stockings to BLE--patient would not allow for assessment of skin and thermal leggings that were unable to be rolled up---please see nursing notes for full details) Extremities: positive: Pedal edema (+1 BLE edema with compression stockings (baseline)) Neurologic/Psychiatric: positive: Disoriented to place, Disoriented to time, Other (Initially suspicious for evaluation, but patient was open more to assessment after sitting together and discussing her trev memories) Palliative Care - POLST Patient has POLST: Yes POLST Status: DNR, Selective Treatment Pain: No pain Feelings of wellbeing/Perceived Quality of Life: Good Sleep: Sleeps well Constipation: Intermittent constipation Performance Status: Ambulatory without an assistive device. No history of falls. She has a history of paranoia and agitation due to dementia. She requires assistance with continence care which she is resistant to. She has episodes of incontinence with her bladder. She is continent of bowel. She is able to self feed. F AST 6C - Palliative Care Discussion: The patient agitation and anxiety has stabilized on her present regimen of quetiapine without need for breakthrough lorazepam. To reduce her underlying suspicions new faces and providers need to establish a rapport to then allow her to open up, engaged and allow for an assessment. The patient continues to have a good appetite and her weight appears to have stabilized to approximately 178.6 pounds which is a reduction from her previously hovering around 180 pounds. Her lower extremity edema appears to be at baseline and she does not demonstrate any acute concerns nor do her caregivers. Impression and Recommendations - Palliative Care Impression: This is a 79-year-old female with moderate dementia, FAS T6C with a history of being agitated and combative. Presently her behavior is controlled on quetiapine and she appears to be comfortable in her present surroundings. Her history of weight gain appears to have stabilized and she weighs approximately 178.6 pounds presently. Palliative care to continue to provide symptom management and anticipatory guidance. Recommendations/Counseling Done: 1. Weight gain. Patient's weight is approximately 178.6 pounds. On admission to home place she was 160 pounds. Her history of weight gain is likely multifactorial nature given her sedentary lifestyle, 100% meal consumption and lower extremity edema. Her lower extremity edema appears to be remaining at baseline. May consider small portions with multivitamin in the future if her dementia is contributing to her forgetting her meal consumption. Continue to monitor weight trends. 2. Bilateral lower extremity edema. No history of congestive heart failure. Lower extremity edema appears to be at baseline. Continue to apply compression stockings every morning and remove every evening for reduction of edema. Continue to encourage elevation of lower extremities when at last. Continue to monitor weight trends. 3. 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 Chronic. Progressive. Supportive care. Fall precautions. No disease modifying agents. No acute behavioral concerns reported by facility staff. Continue quetiapine 50 mg in the a.m., 50 mg in the afternoon, 150 mg at bedtime. Maximum daily dose of quetiapine is 300 mg daily. No documented use of lorazepam for agitation. If the patient displays increased agitation and underlying anxiety would benefit from introduction of SSRI and will discuss with the patient's nephew/DPOA given patient's prior SSRI use and would consider sertraline. Given the patient's advanced age, dementia and chronic comorbidities a gradual decline is expected. Time Spent: CPT 50088 Plan of care reviewed with nursing staff with understanding verbalized. Questions answered and addressed. Disclaimer: The chart note was formulated using voice recognition technology and unfortunately sound alike errors may occur.
== END 2020-05-05 09:31 | disposition home or self-care (01) ==
LOC: PC 09:30
PROVIDERS: ATTEND Nurse Practitioner Family
DX: Z51.5 Encounter for palliative care (principal); R63.5 Abnormal weight gain; R60.0 Localized edema; F03.91 Unspecified dementia, unspecified severity, with behavioral disturbance; K59.00 Constipation, unspecified; Z66 Do not resuscitate

== ENCOUNTER 2020-06-14 14:30 | Outpatient (CLI) | payer MEDICARE, MEDICAID ==
--- NOTE | 2020-06-14 17:27 | CONSULTATION NOTE ---
Palliative Care Follow Up - Referral Referring Provider: RAMEZ Juna Time of Visit: Iniated 1430 Referral setting: Assisted living Referral Reason: Redness to left foot/constipation/dementia with behavioral disturbances - Information Sources Records reviewed: Previous records reviewed History/Review of Systems obtained from: Patient, Caregiver, Nursing Exam limitations: Clinical condition (Advanced dementia) - History of Present Illness Update Brief HPI Update: This is a 79-year-old female who is seen and evaluated today at [facility] regarding acute concerns with redness to her left foot, constipation and follow-up regarding dementia with behavioral disturbances and history of cutaneous candidiasis with assistance of, EVA Dominguez. The patient has a history of developing blisters to her lower extremities and has had a effective response with Aquacel Ag and Mepilex border dressing in the past and has been followed by home health nursing in the summer 2019. Caregivers reported increased redness to the patient's left foot and there is evidence of an abrasion without discharge. The patient is not denying any acute discomfort to the area per staff report. This was a new finding. The patient has been displaying constipation. She has been requiring dosages of milk of magnesia for defecation. Upon review of MAR she has had 2 doses of milk of magnesia in the month of June. She is typically having small bowel movements and would benefit from a bowel regimen. Initiation of 4 ounces of warm prune juice daily with breakfast has not been adequate in prevention of constipation. The patient would not allow for assessment today of erythema under her bilateral breasts due to cutaneous candidiasis. She is intermittently requiring nystatin powder application. Staff reports that the redness will resolve under her breasts and then several days later will return. They are asking for additional interventions. Patient will often refuse to have her weight obtained. Last weight was documented at 174.4 pounds on 05/31/2020. She has had an overall weight gain since her admission into [facility]. When moving in she weighed approximately 160 pounds. She typically consumes 100% of her meals. She does have some lower extremity edema and has compression stockings ordered however, only one in place to left lower extremity today. The patient is seen in the [place] area in a chair with a blanket over her legs in a dependent position on the floor. She is more cooperative than usual but declines having vitals taken today and her vital signs obtained from staff were reviewed today. Past Medical History: Patient has a past medical history of SMA stenosis, myocardial infarction x2 with stenting, coronary artery disease, hypertension, peripheral arterial disease, agitation, hearing loss, dementia. Social History - Living Situation Living arrangement: Assisted living Support System: The patient is never and has no children. She has a brother and sister, both who are living but are not involved in her care. Her health care management has fallen to her nephew, Urbano Bolanos at [phone] her is her designated DPOA. [facility]. The patient has been on [place] PES and has a safety deposit clerk, Betty at [phone]. Medications/Allergies - Medications Home Medications: Ambulatory Orders Medication Instructions Recorded Confirmed Acetaminophen [Tylenol] 325 mg PO Q6H PRN 11/03/19 06/14/20 Aspirin 81 mg PO DAILY 11/03/19 06/14/20 Bisacodyl Supp [Dulcolax Supp] 10 mg FL DAILY PRN MDD if no BM 11/03/19 06/14/20 after MOM Carvedilol [Coreg] 25 mg PO BID 11/03/19 06/14/20 LORazepam [Ativan] 0.5 mg PO Q8H PRN 11/03/19 06/14/20 Lisinopril [Zestril] 20 mg PO DAILY 11/03/19 06/14/20 Loperamide [Imodium] PRN MDD NTE 8tabs/day 11/03/19 Magnesium Hydroxide [Milk of 30 ml PO DAILY PRN MDD if NO BM in 11/03/19 06/14/20 Magnesia] 3 days Quetiapine Fumarate 50 mg PO .AM AND MIDDAY 11/03/19 06/14/20 Quetiapine Fumarate 150 mg PO QPM 11/03/19 06/14/20 Rosuvastatin Calcium 10 mg PO DAILY 11/03/19 06/14/20 Nystatin 1 applic TP BID 12/18/19 03/09/20 Doxycycline Hyclate 100 mg PO BID 06/14/20 06/14/20 Remedy Skin Repair Cream 1 applic TP DAILY 06/14/20 - Allergies Allergies/Adverse Reactions: Allergies Allergy/AdvReac Type Severity Reaction Status Date / Time Penicillins Allergy Unknown Verified 06/14/20 17:35 Review of Systems - Constitutional Constitutional: reports: Weight loss (174.4lb 05/2020 after weight gain upon admission to facility). denies: Fever - Eyes Eyes: denies: Irritation - Ears, Nose & Throat Ears, Nose & Throat: reports: Hearing loss. denies: Hearing aids - Cardiovascular Cardiovascular: reports: Edema. denies: Chest pain - Respiratory Respiratory: denies: Cough - Gastrointestinal Gastrointestinal: reports: Constipation (requiring use of MOM, see HPI), Good appetite. denies: Abdominal pain, Vomiting - Genitourinary Genitourinary: reports: Incontinence. denies: Dysuria - Musculoskeletal Musculoskeletal: denies: Joint pain - Integumentary Integumentary: reports: Rash, Dryness - Neurological Neurological: reports: Memory problems - Psychiatric Psychiatric: reports: Anxiety, Aggitation (controlled) - Endocrine Endocrine: denies: Hypothyroidism - All Other Systems All Other Systems: reports: Reviewed and negative (ROS is limited as patient is a poor historian due to dementia. ROS supplemented by caregiving staff and nursing.) Physical Exam - Vital Signs Temperature: 36.4 C Pulse Rate: 86 O2 Saturation: 97 Blood Pressure: 119/78 - Physical Exam General Appearance: positive: No acute distress, Alert, Other (appears stated age, sitting in common area, obese) Eyes Bilateral: positive: Normal inspection ENT: positive: No signs of dehydration, Other (missing teeth) Neck: positive: Trachea midline Cardiovascular: positive: Regular rate & rhythm Respiratory: positive: No respiratory distress, Breath sounds nml Abdomen: positive: Non-tender, Soft, Nml bowel sounds, Obese Skin: positive: Other (1) abrasion to left dorsal aspect of foot appx 2cm x 0.5cm with scab formation, without discharge and surrounding darker erythema to toes extending towards ankle appx 10cm in size, warmto touch. Light erythema noted extending past ankle--both areas marked. 2) Cracking skin left foot) Extremities: positive: Pedal edema (+1 BLE edema with compression stockings (baseline) to LLE only) Neurologic/Psychiatric: positive: Disoriented to place, Disoriented to time, Other (Declined vital signs but allowed for assessment when she is often suspicious and will refuse) Palliative Care - POLST Patient has POLST: Yes POLST Status: DNR, Selective Treatment Pain: No pain Performance Status: FAS T 6C - Palliative Care Discussion: The patient continues to have evidence of constipation despite initiation of warm prune juice daily with breakfast. She is requiring as needed ad ministration of milk of magnesia after not having a bowel movement every 3 days and would benefit from further adjustment of her bowel regiment. The patient has an abrasion to the dorsal aspect of her left foot that has subsequently resulted in localized cellulitis without tenderness and noted warmth and erythema upon assessment. The skin to that area is quite cracked and requires increased moisturization. Impression and Recommendations - Palliative Care Impression: This is a 79-year-old female with moderate dementia, F AST 60, with a history of being agitated and combative now with acute cellulitis to her left dorsal foot and constipation. No evidence of acute distress. Her history of weight gain has stabilized and her weight is presently 174.4lb when she allows caregivers to weigh her. Palliative care to continue provide symptom management, care coordination and anticipatory guidance. Recommendations/Counseling Done: 1. Acute cellulitis, left foot. Initiate doxycycline 100 mg twice daily x7 days due to the patient's reported allergy to PCN. Marked area of erythema on the foot and advised nursing staff to evaluate for any spreading redness for further signs and symptoms of infection and to notify PCP of any changes with understanding verbalized. 2. Constipation. Not controlled with initiation of warm prune juice daily with breakfast. Initiate MiraLAX 17 g in 4 ounces of fluid dissolved once daily for prevention of constipation. Hold for loose stools. Continue milk of magnesia as needed and monitor administration. Continue to monitor. 3. Dryness to bilateral lower extremities. Initiate remedy skin repair cream to bilateral feet and lower legs daily for dryness. 4. Cutaneous candidiasis under bilateral breasts. Patient has pendulous breasts sepsis double to candidiasis. Staff have intermittently been using nystatin powder. If obtainable, would recommend transitioning to Interdry fabric that are cut in 2 needed strips to apply under bilateral breasts and are able to be used up to 5 times and not to use this in conjunction with any powder or creams for its wicking abilities. Staff to look into obtainment of Interdry fabric and in the interim to continue application of nystatin powder as needed. 5. 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 Chronic. Progressive. Supportive care. Precautions. On no disease modifying agents. Behavioral concerns are stable at the present time per facility staff. Continue quetiapine 50 mg In the morning, 50 mg in the afternoon, and 150 mg at bedtime. Maximum dose of quetiapine is 300 mg daily. No documented use of lorazepam for agitation upon review of MAR. Given the patient's advanced age, dementia and chronic comorbidities a gradual Landa is expected. Time Spent: CPT 08572 Plan of care reviewed with nursing staff with understanding verbalized. Questions answered and addressed. Message left for patient's nephew/DPOA Urbano Bolanos at [phone] of with generalized message to touch base regarding plan of care and also to confirm if the patient is ever received cephalosporins in the past without incident. Awaiting return call back. Total time spent X with greater than 50% of time spent in counseling family and patient regarding escalation vs de-escalation of care, palliative/hospice philosophy as well as care coordination, review of pain and symptom management and anticipatory guidance. Total time spent X with greater than 50% of time spent in counseling and coordination of care; examination of the patient; medication reconciliation; and reviewing medical records. Total time spent X minutes with greater than 50% of this spent in counseling and coordination of care, review of pain and symptom management and anticipatory guidance.
== END 2020-06-14 14:31 | disposition home or self-care (01) ==
LOC: PC 14:30
PROVIDERS: ATTEND Nurse Practitioner Family
DX: Z51.5 Encounter for palliative care (principal); S90.812A Abrasion, left foot, initial encounter; L03.116 Cellulitis of left lower limb; K59.00 Constipation, unspecified; L85.3 Xerosis cutis; B37.2 Candidiasis of skin and nail; F03.91 Unspecified dementia, unspecified severity, with behavioral disturbance; R60.0 Localized edema; Z66 Do not resuscitate

== ENCOUNTER 2020-08-15 15:00 | Outpatient (CLI) | payer MEDICARE, MEDICAID ==
--- NOTE | 2020-08-15 18:52 | CONSULTATION NOTE ---
Palliative Care Follow Up - Referral Referring Provider: RAMEZ Durand Time of Visit: Initated 1500 Referral setting: Assisted living Referral Reason: HTN/LE edema/Dementia - Information Sources Records reviewed: Previous records reviewed History/Review of Systems obtained from: Patient, Caregiver, Nursing Exam limitations: Clinical condition (Advanced Dementia) - History of Present Illness Update Brief HPI Update: This is a 79-year-old female who was seen and evaluated today at [facility] for follow-up regarding her dementia with behavioral concerns disturbances and lower extremity edema with hypertension. Last month the patient had episodes of hypotension without cardiac complaints and her PCP reduced her lisinopril to 10 mg daily from 20 mg. She continues on Coreg 25 mg twice daily. The patient denies headache or dizziness on assessment today. The patient has a history of lower extremity edema and is mostly compliant with allowing compression stockings to be put in place in the morning and removed in the evening. She has had a gradual weight gain since moving into home [facility] in the spring 2019. She is often not compliant with allowing the staff to obtain her monthly weights. Last weight 184.6 pounds obtained on 08/03/2020. The patient has a history of being agitated and combative. She was hospitalized at [facility] in [place] for approximately a month due to multiple circumstances before placement at [facility] in September 2019. The patient's continues to be compliant with the staff outside of allowing for pericare or routine weights. She continues on [id number] mg in the morning, 50 mg in the afternoon and 150 mg in the evening. She also has lorazepam To be administered as needed for acute anxiety or agitation that has not been utilized this month. Her PCP also initiated her on Namenda starting 08/09/2020 5 mg in the evening Without noted changes in the patient's behavior per caregivers and facility staff. The patient is seen in the common area sitting in her typical chair by the window. She has her compression stockings in place and new slip on shoes that are bedazzled. The patient is conversant with this [facility] but reluctant for examination. No evidence of acute distress. Past Medical History: Patient has a past medical history of SMA stenosis, myocardial infarction x2 with stenting, coronary artery disease, hypertension, peripheral arterial disease, agitation, hearing loss, dementia. . Social History - Living Situation Living arrangement: Assisted living Support System: The patient is never and has no children. Her health care management has fallen to her nephew, Urbano Bolanos at [phone] her is her designated DPOA. [facility]. The patient has been on [place] PES and has a vp data, Betty at [phone]. Medications/Allergies - Medications Home Medications: Ambulatory Orders Medication Instructions Recorded Confirmed Acetaminophen [Tylenol] 325 mg PO Q6H PRN 11/03/19 06/14/20 Aspirin 81 mg PO DAILY 11/03/19 06/14/20 Bisacodyl Supp [Dulcolax Supp] 10 mg SD DAILY PRN MDD if no BM 11/03/19 06/14/20 after MOM Carvedilol [Coreg] 25 mg PO BID 11/03/19 06/14/20 LORazepam [Ativan] 0.5 mg PO Q8H PRN 11/03/19 06/14/20 Lisinopril [Zestril] 10 mg PO DAILY 11/03/19 06/14/20 Loperamide [Imodium] PRN MDD NTE 8tabs/day 11/03/19 Magnesium Hydroxide [Milk of 30 ml PO DAILY PRN MDD if NO BM in 11/03/19 06/14/20 Magnesia] 3 days Quetiapine Fumarate 50 mg PO .AM AND MIDDAY 11/03/19 06/14/20 Quetiapine Fumarate 150 mg PO QPM 11/03/19 06/14/20 Rosuvastatin Calcium 10 mg PO DAILY 11/03/19 06/14/20 Nystatin 1 applic TP BID 12/18/19 03/09/20 Remedy Skin Repair Cream 1 applic TP DAILY 06/14/20 Memantine [Namenda] 5 mg PO QPM 08/16/20 08/16/20 - Allergies Allergies/Adverse Reactions: Allergies Allergy/AdvReac Type Severity Reaction Status Date / Time Penicillins Allergy Unknown Verified 06/14/20 17:35 Review of Systems - Constitutional Constitutional: reports: Weight gain (weight 184.6lb, patient will refuse weights and therefore it is difficult to track weight trends.). denies: Fever - Eyes Eyes: denies: Corrective lenses - Ears, Nose & Throat Ears, Nose & Throat: reports: Hearing loss. denies: Hearing aids, Dentures - Cardiovascular Cardiovascular: reports: Edema. denies: Chest pain - Respiratory Respiratory: denies: Cough - Gastrointestinal Gastrointestinal: reports: Good appetite. denies: Abdominal pain, Constipation (controlled) - Genitourinary Genitourinary: reports: Incontinence. denies: Dysuria - Musculoskeletal Musculoskeletal: denies: Joint pain, Assistive devices - Integumentary Integumentary: reports: Dryness - Neurological Neurological: reports: Memory problems. denies: Headache, Dizziness - Psychiatric Psychiatric: reports: Anxiety, Aggitation (controlled) - Endocrine Endocrine: denies: Hypothyroidism - All Other Systems All Other Systems: reports: Reviewed and negative (ROS is limited as patient is a poor historian due to dementia. ROS supplemented by caregiving staff and nursing.) Physical Exam - Vital Signs Pulse Rate: 71 O2 Saturation: 99 Blood Pressure: 105/51 (VS taken /, patient refused VS today) - Physical Exam General Appearance: positive: No acute distress, Alert, Other (appears stated age, sitting in common area, obese) Eyes Bilateral: positive: Normal inspection ENT: positive: No signs of dehydration, Other (missing teeth) Neck: positive: Trachea midline Cardiovascular: positive: Regular rate & rhythm Respiratory: positive: Other (Declined full assessment) Abdomen: positive: Obese, Other (Declined full assessment) Skin: positive: Other (visible skin intact) Extremities: positive: Pedal edema (visible BLE edema with compression stockings (that appears to be baseline) to BLE) Neurologic/Psychiatric: positive: Disoriented to place, Disoriented to time, Other (Declined vital signs and would not allow for a full assessment stating "I don't need it. I am fine.") Palliative Care - POLST Patient has POLST: Yes POLST Status: DNR, Selective Treatment Performance Status: FAST 6C - Palliative Care Discussion: The patient continues with controlled lower extremity edema based on visualization and positive response with application of compression stockings to both lower extremities. She is not amenable to elevating her lower extremities at rest and typically has her legs in a dependent position resting in a common chair in the common area. She continues to have noted times of hypotension despite recent dose reduction of her lisinopril. Her Coreg 25 mg tablet has been needed be held 5 times in the month of August due to to her hold parameters. The patient herself does not have any cardiac complaints. She may benefit from further dose reduction of her antihypertensive medications. She continues to have some underlying suspicions regarding new caregivers. Typically, the patient will allow an assessment by this WIND FIELD SERVICE MANAGER if sat with an engaging her in conversation for a period of time before attempting an assessment. However, today was not successful. Her underlying anxiety and agitation appears to be controlled with her present regimen of quetiapine without needed breakthrough lorazepam. It is too soon to know if the new addition of Namenda is providing any support for the patient's underlying behavior as it was just initiated. Results - Lab Results Lab results reviewed: Yes Lab and Imaging Results: 08/05/2020 Sodium 142, potassium 4.5, BUN 25, creatinine 0.77, glucose 100, albumin 3.5, alk phos 85, ALT 10, AST 15, WBC C7, H&H 10.6 and 32.8%, platelets 230 Impression and Recommendations - Palliative Care Impression: This is a 79-year-old female with moderate dementia, FAS T6 ED with a history of being agitated and combative. Presently her behaviors are controlled on quetiapine and she is comfortable with the present facility staff. She has had a recent addition of Namenda to her behavioral regimen. Her lisinopril was recently reduced in dose due to recent episodes of hypotension. She may benefit from further dose adjustment of her antihypertensive medication. Palliative care to continue to provide symptom management, care coordination and anticipatory guidance. Recommendations/Counseling Done: 1. Hypertension and in the setting of a history of FL x2. Patient has had her Coreg held 5 times this month upon review of AUG. Her lisinopril was recently reduced to 10 mg daily. Request that blood pressure log be faxed to this WIND FIELD SERVICE MANAGER in 2 weeks for review this may require further reduction of the patient's lis inopril to avoid hypotensive events that may lead to falls. Continue on aspirin therapy for cardiac prophylaxis due to history of FL. Continue Coreg 25 mg twice daily with hold parameters due to history of FL. Patient is without cardiac complaints. Continue to monitor. 2. Bilateral lower extremity edema. No history of congestive heart failure. Lower extremity edema appears to be at baseline. Continue to apply compression stockings every morning and remove every evening for reduction of edema. Continue to encourage elevation of lower extremities when at rest. Continue to monitor weight trends however, this is difficult to obtain as the patient is not often compliant with allowing weight to be obtained. 3. 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 Chronic. Progress [place]. Supportive care. Fall precautions. Present lady on Namenda 5 mg nightly. No acute behavioral concerns reported by facility staff. Continue quetiapine 50 mg in the morning, 50 mg in the afternoon, and 150 mg at bedtime. Max daily dose of quetiapine is 300 mg daily. No documented use of lorazepam for agitation. Patient has had prior SSRI use per her nephew/DPOA's report that has not been effective in the past if increased agitation or anxiety. Continue to monitor response to Namenda. Given the patient's advanced age, dementia and chronic comorbidities a gradual decline is expected. CPT 08592 Plabn Of care reviewed with facility a Angelica VELASQUEZ with questions answered and addressed. Disclaimer: The chart note was formulated using voice recognition technology and unfortunately sound alike errors may occur.
== END 2020-08-15 15:01 | disposition home or self-care (01) ==
LOC: PC 15:00
PROVIDERS: ATTEND Nurse Practitioner Family
DX: Z51.5 Encounter for palliative care (principal); I10 Essential (primary) hypertension; I25.2 Old myocardial infarction; R60.0 Localized edema; F03.91 Unspecified dementia, unspecified severity, with behavioral disturbance; Z66 Do not resuscitate

== ENCOUNTER 2020-10-18 13:30 | Outpatient (CLI) | payer MEDICARE, MEDICAID ==
--- NOTE | 2020-10-18 19:16 | CONSULTATION NOTE ---
Palliative Care Follow Up - Referral Referring Provider: RAMEZ Durand Time of Visit: Redness to foot/Dementia with behavior Referral setting: Assisted living Referral Reason: Redness left foot/Dementia with behavior - Information Sources Records reviewed: Previous records reviewed History/Review of Systems obtained from: Patient, Family (nephew/DPOA Urbano), Caregiver (Kristin), Nursing (EVA Dominguez) Exam limitations: Clinical condition (Advanced dementia and Paranoia) - History of Present Illness Update Brief HPI Update: This is a 79-year-old female who is seen and evaluated today at [facility] for evaluation of her left foot erythema and dementia with behavioral disturbances. The patient has a history of being agitated and combative with underlying paranoia. She was hospitalized at [facility] in [place] for approximately 1 month due to multiple circumstances before placement at [facility] in September 2019. Upon review of patient's medical record while she was at [facility] in [place] she was titrated up on quetiapine and was also receiving Zyprexa for management of her behaviors. Upon initial presentation at [facility] she was also on doxepin for sleep. The patient is presently 1 quetiapine 50 mg in the morning, 50 mg in the afternoon and 150 mg in the evening. She continues to have great resistance to the staff allowing for pericare, personal hygiene, and incontinence care. The patient has had episodes of aggressive behavior towards caregivers such as squeezing their arms and scratching them. It typically requires 3 caregivers to provide assistance with the patient. Despite the above listed behaviors, the patient has not received PRN ativan upon review of MAR for the month of October. The patient Namenda was increased by her PCP on 09/01 to 5 mg twice daily. Facility staff do not note a improvement in the patient's behaviors since initiation of Namenda. Facility staff reported noting erythema to the top of her left foot without tenderness to touch being reported or spreading redness. Facility staff report that the shoes the patient's will wear has evidence of soiling and due to the patient's lower extremity edema is contributing to indentation and they have asked that the facility DPOA/nephew obtain new shoes. The patient is seen in the common area today dressed and pacing. She is opening and closing other patients rooms. She is resistant to approach or sitting down. Despite being a compensatory presents the patient is not open to engaging in a physical examination or allowing vital signs to be obtained. Past Medical History: Patient has a past medical history of SMA stenosis, myocardial infarction x2 with stenting, coronary artery disease, hypertension, peripheral arterial disease, agitation, hearing loss, dementia. Social History - Living Situation Living arrangement: Assisted living Support System: The patient is never and has no children. Her health care management has fallen to her nephew, Urbano Bolanos at [phone] her is her designated DPOA. [facility]. The patient has been on [place] PES and has a loss prevention detective, Betty at [phone]. Medications/Allergies - Medications Home Medications: Ambulatory Orders Medication Instructions Recorded Confirmed Acetaminophen [Tylenol] 325 mg PO Q6H PRN 11/03/19 06/14/20 Aspirin 81 mg PO DAILY 11/03/19 06/14/20 Bisacodyl Supp [Dulcolax Supp] 10 mg MA DAILY PRN MDD if no BM 11/03/19 06/14/20 after MOM Carvedilol [Coreg] 12.5 mg PO BID 11/03/19 06/14/20 LORazepam [Ativan] 0.5 mg PO Q8H PRN 11/03/19 06/14/20 Lisinopril [Zestril] 5 mg PO DAILY 11/03/19 06/14/20 Loperamide [Imodium] PRN MDD NTE 8tabs/day 11/03/19 Magnesium Hydroxide [Milk of 30 ml PO DAILY PRN MDD if NO BM in 11/03/19 06/14/20 Magnesia] 3 days Quetiapine Fumarate 50 mg PO .AM AND MIDDAY 11/03/19 06/14/20 Quetiapine Fumarate 150 mg PO QPM 11/03/19 06/14/20 Rosuvastatin Calcium 10 mg PO DAILY 11/03/19 06/14/20 Nystatin 1 applic TP BID 12/18/19 03/09/20 Remedy Skin Repair Cream 1 applic TP DAILY 06/14/20 Memantine [Namenda] 5 mg PO BID 08/16/20 08/16/20 - Allergies Allergies/Adverse Reactions: Allergies Allergy/AdvReac Type Severity Reaction Status Date / Time Penicillins Allergy Unknown Verified 06/14/20 17:35 Review of Systems - Constitutional Constitutional: reports: Other (weight 175.2lb 10/05/2020). denies: Fever - Ears, Nose & Throat Ears, Nose & Throat: reports: Hearing loss. denies: Hearing aids - Cardiovascular Cardiovascular: reports: Edema. denies: Chest pain - Respiratory Respiratory: denies: Cough - Gastrointestinal Gastrointestinal: reports: Good appetite. denies: Abdominal pain, Vomiting - Genitourinary Genitourinary: reports: Incontinence. denies: Dysuria - Musculoskeletal Musculoskeletal: denies: Assistive devices - Integumentary Integumentary: reports: Dryness - Neurological Neurological: reports: Memory problems. denies: Headache, Dizziness - Psychiatric Psychiatric: reports: Anxiety, Aggitation, Behavior disturbances - Endocrine Endocrine: denies: Diabetes type 2 - All Other Systems All Other Systems: reports: Reviewed and negative (ROS is limited as patient is a poor historian due to dementia. ROS supplemented by caregiving staff and nursing.) Physical Exam - Physical Exam General Appearance: positive: No acute distress, Alert, Other (appears stated age,in common area, obese) Eyes Bilateral: positive: Normal inspection ENT: positive: Other (missing teeth) Cardiovascular: positive: Other (Declined assessment) Respiratory: positive: Other (Declined full assessment) Abdomen: positive: Obese, Other (Declined full assessment) Skin: positive: Other (unable to visualize feet due to patient's reluctance to allow for examination) Extremities: positive: Pedal edema (visible BLE edema without compression stockings on as they are drying after being washed) Neurologic/Psychiatric: positive: Disoriented to place, Disoriented to time, Other (Declined vital signs and would not allow for a full assessment stating "Aren't there other people you can bother?" Pacing with some underyling agitation going to other rooms and opening doors.) Comments/Other: BP in AM of 10/18/2020 117/51 Palliative Care - POLST Patient has POLST: Yes POLST Status: DNR, Selective Treatment Pain: No pain Performance Status: Patient is ambulatory without assistive device. She is unable to dress herself. She is resistant to hygiene and pericare. It has been a number of weeks and she has allowed for bathing from facility staff. She is able to self feed. She prefers sleeping sitting in the common area and not in her bed. Incontinent of bowel and bladder. FAST 6E - Palliative Care Discussion: The patient has a longstanding history of dementia with behavioral disturbances with underlying agitation, paranoia and and resistance to care. Previously appear to be well controlled with quetiapine at divided scheduled dosing. Recently had an increase in her Namenda to 5 mg twice daily without noted improvement in her behaviors. Demonstrating progression of her dementia with fecal incontinence and underlying paranoia. Contacted the patient's DPOA/nephew to discuss dose titration of quetiapine for further management of the patient's symptoms for comfort and behavioral disturbances as the patient will often be aggressive towards staff. However, the patient's nephew/DPOA declined increase of quetiapine stating that this is been tried in the past and increased dosages led to increased agitation. She is not responded to SSRIs in the past either. The patient's nephew is unclear what has been effective for the patient's behaviors given she was having medication adjustments before her transfer [facility]. The patient's nephew is concerned as he does not wish her to be sedated and not be able to participate in her surroundings. Supportive listening provided and attempted to discuss progression of dementia however, the patient's nephew prefers to speak to his family regarding any medication changes at the present time. Impression and Recommendations - Palliative Care Impression: This is a 79-year-old female with dementia, F AST 6D with a history of being agitated combative with increasing paranoia and resistance to care. Since [facility] her quetiapine has not needed dose adjustment as her behaviors have been relatively well controlled. Presently, she would benefit from a dose up titration of her quetiapine however, her DPOA wishes to weigh risks versus benefits and further discussion with family members before proceeding with any medication changes. Palliative care to continue to provide symptom management, care coordination and anticipatory guidance. Recommendations/Counseling Done: 1.Erythema to forefoot of the left foot. Unable to assess due to patient's resistant to any assessment and paranoia despite this COMBAT CONTROL making attempts to build rapport to calm any of the patient's underlying anxiety. Possibly rubbing as a contributing factor given the location of the reported area of erythema with no signs or symptoms of infection reported by facility staff. She continues to receive remedy skin repair cream to her bilateral feet. Facility RN has already requested that nephew/DPOA obtain new shoes for the patient to reduce friction. Request that facility staff continue to monitor for signs and symptoms of infection such as warmth, pain, swelling and increasing redness and to notify the patient's PCP. The patient does have a history of development of blisters due to edema and friction. 2. Dementia with behavioral disturbances. Patient has remained on quetiapine 50 mg in the morning, 50 mg in the afternoon and 150 mg at bedtime since her presentation to [facility]. Given her resistance to care, agitation, and underlying paranoia she would benefit from increase of quetiapine. However, the patient's nephew/DPOA is hesitant to move forward with a dose adjustment of quetiapine and if that is the case then introduced the use of divalprovex at a low dose for stabilization of mood with the goal of titrating off the quetiapine. Patient's nephew/DPOA wishes to consult family before making any medication adjustments. Nephew was reported that SSRI use in the past has not been effective and ultimately increased agitation and anxiety. Empathetic listening provided to the nephew. We will follow-up with the nephew regarding decision moving forward. Given the patient's addition of Namenda 5 mg twice daily he has not assisted in control of behavioral disturbances would also recommend that this be discontinued. Given the patient's advanced age, dementia and chronic comorbidities a gradual decline is expected. CPT 32429 Discussed plan of care with EVA Dominguez in to await any medication adjustments until after further discussion is had between the patient's family members and this COMBAT CONTROL with understanding verbalized. Contacted the patient's nephew/DPOA Urbano at [phone] in discussed recommendations and plan of care with plan to follow-up regarding decision making after weighing risks versus benefit.
== END 2020-10-18 13:31 | disposition home or self-care (01) ==
LOC: PC 13:30
PROVIDERS: ATTEND Nurse Practitioner Family
DX: Z51.5 Encounter for palliative care (principal); L53.9 Erythematous condition, unspecified; F03.91 Unspecified dementia, unspecified severity, with behavioral disturbance; R15.9 Full incontinence of feces; R32 Unspecified urinary incontinence; Z79.899 Other long term (current) drug therapy; Z66 Do not resuscitate

== ENCOUNTER 2020-11-22 16:20 | Outpatient (CLI) | payer MEDICARE, MEDICAID ==
--- NOTE | 2020-11-22 17:14 | CONSULTATION NOTE ---
Palliative Care Follow Up - Referral Referring Provider: RAMEZ Durand Time of Visit: Initiated 1620 Referral setting: Assisted living Referral Reason: Dementia with behavior - Information Sources Records reviewed: Previous records reviewed History/Review of Systems obtained from: Patient, Nursing (EVA Dominguez) Exam limitations: Clinical condition (Advanced Dementia) - History of Present Illness Update Brief HPI Update: This is an 80-year-old female who was seen and evaluated today at [facility] for evaluation of dementia with behavioral disturbances in the setting of recent medication changes. The patient has a history of being agitated and combative with underlying paranoia. She was hospitalized at [facility] in [place] for approximately 1 month due to multiple circumstances before [facility] in September 2019. Upon review of the patient's medical record while she was at [facility] she was titrated up on quetiapine and was also receiving Zyprexa for management of her behaviors. Also on initial presentation at [facility] she was on doxepin for sleep. The patient is no longer on doxepin or Zyprexa. On last evaluation at the end of October 2020 with discussion with the patient's nephew/DPOA increased her quetiapine to 75 mg in the morning, 50 mg in the afternoon, and 150 mg in the evening increased by 25 mg of quetiapine in total daily dose. Since that dose increased she has been in calmer per staff afford and much more accepting of assistance with personal hygiene and incontinence care. She has not been having increased aggressive behaviors towards caregivers.Upon review of MAR she has not required any as needed dose of lorazepam. After discussion with the patient's DPOA/nephew in regards to utilization of Namenda as there was not a formal discussion with the DPOA regarding initiation and there has been no noted benefit per facility staff this was tapered off and discontinued. The patient has not had any adverse response to discontinuation of Namenda. The patient is seen initially in another resident's room and was redirected easily back to the common area where she was engaged and allowed this GRADUATE ASSISTANT ATHLETIC TRAINER to assess her. Typically, the patient is resistant to allowing this provider to examine her or have engaged conversation. Past Medical History: Patient has a past medical history of SMA stenosis, myocardial infarction x2 with stenting, coronary artery disease, hypertension, peripheral arterial disease, agitation, hearing loss, dementia. Social History - Living Situation Living arrangement: Assisted living Support System: The patient is never and has no children. Her health care management has fallen to her nephew, Urbano Bolanos at [phone] her is her designated DPOA. [facility]. The patient has been on [place] PES and has a inspector of dredging, Betty at [phone]. Her nephew called her on her birthday this month and she did not recognize it was her birthday but had a "sassy reply." Medications/Allergies - Medications Home Medications: Ambulatory Orders Medication Instructions Recorded Confirmed Acetaminophen [Tylenol] 325 mg PO Q6H PRN 11/03/19 06/14/20 Aspirin 81 mg PO DAILY 11/03/19 06/14/20 Bisacodyl Supp [Dulcolax Supp] 10 mg MO DAILY PRN MDD if no BM 11/03/19 06/14/20 after MOM Carvedilol [Coreg] 12.5 mg PO BID 11/03/19 06/14/20 LORazepam [Ativan] 0.5 mg PO Q8H PRN 11/03/19 06/14/20 Lisinopril [Zestril] 5 mg PO DAILY 11/03/19 06/14/20 Loperamide [Imodium] PRN MDD NTE 8tabs/day 11/03/19 Magnesium Hydroxide [Milk of 30 ml PO DAILY PRN MDD if NO BM in 11/03/19 06/14/20 Magnesia] 3 days Quetiapine Fumarate 50 mg PO .MIDDAY 11/03/19 06/14/20 Quetiapine Fumarate 150 mg PO QPM 11/03/19 06/14/20 Rosuvastatin Calcium 10 mg PO DAILY 11/03/19 06/14/20 Nystatin 1 applic TP BID 12/18/19 03/09/20 Remedy Skin Repair Cream 1 applic TP DAILY 06/14/20 QUEtiapine [SEROquel] 75 mg PO .MORNING 11/22/20 11/22/20 - Allergies Allergies/Adverse Reactions: Allergies Allergy/AdvReac Type Severity Reaction Status Date / Time Penicillins Allergy Unknown Verified 06/14/20 17:35 Review of Systems - Constitutional Constitutional: reports: Other (weight 175.2lb 10/05/2020--refused weight in November 2020). denies: Fatigue, Fever - Eyes Eyes: denies: Irritation - Ears, Nose & Throat Ears, Nose & Throat: reports: Hearing loss. denies: Hearing aids - Cardiovascular Cardiovascular: reports: Edema (ordered compression stockings). denies: Chest pain - Respiratory Respiratory: denies: Cough - Gastrointestinal Gastrointestinal: reports: Good appetite. denies: Diarrhea, Vomiting - Genitourinary Genitourinary: reports: Incontinence. denies: Dysuria - Musculoskeletal Musculoskeletal: denies: Assistive devices - Neurological Neurological: reports: Memory problems. denies: Headache - Psychiatric Psychiatric: reports: Anxiety, Aggitation (improved with increase of quetiapine), Behavior disturbances - Endocrine Endocrine: denies: Diabetes type 2 - All Other Systems All Other Systems: reports: Reviewed and negative (ROS is limited as patient is a poor historian due to dementia. ROS supplemented by nursing.) Physical Exam - Vital Signs Pulse Rate: 72 Blood Pressure: 143/74 - Physical Exam General Appearance: positive: No acute distress, Alert, Other (appears stated age, obese) Eyes Bilateral: positive: Normal inspection ENT: positive: Other (missing teeth) Neck: positive: Trachea midline Cardiovascular: positive: Regular rate & rhythm, No murmur Respiratory: positive: No respiratory distress, Breath sounds nml Abdomen: positive: Non-tender, Soft, Nml bowel sounds, Obese Skin: negative: Rash Extremities: positive: Pedal edema (+1 BLE edema without compression stockings in place) Neurologic/Psychiatric: positive: Disoriented to place, Disoriented to time, Other (No agitation,engaged,+confabulated stories,no paranoia on assessment today) Palliative Care - POLST Patient has POLST: Yes POLST Status: DNR, Selective Treatment Pain: No pain - Palliative Care Discussion: Patient has a longstanding history of dementia with behavioral disturbances with underlying agitation, paranoia and resistance to care. She had previously been well controlled with quetiapine 250 mg daily. She has had a positive response with increase of quetiapine to 270 mg daily in divided doses. Should. She is no longer displaying resistance to care, examination her underlying agitation or paranoia. She has also tolerated discontinuation of Namenda as there was no noted improvement in her behaviors. Reassurance provided to the patient's nephew/DPOA regarding decision to increase quetiapine dosage as there has been a positive response. Impression and Recommendations - Palliative Care Impression: This is an 80-year-old female with dementia, F AST 60 with a history of being agitated, combative with increasing paranoia and resistance to care. She has had recent adjustment of her quetiapine dose that has been titrated up with positive response and noted improvement of her overall comfort level as she has had reduction in anxiety, and agitation, and paranoia. Palliative care to continue provide symptom management, care coordination and anticipatory guidance. Recommendations/Counseling Done: 1. Dementia with behavioral disturbances. Patient has tolerated dose increase of quetiapine to 75 mg in the morning, 50 mg in the afternoon and 150 mg at bedtime. She has had improvement in her overall agitation, paranoia and is no longer resistant to care from facility staff per staff report. Had previously discussed use of Depakote at a low dose for stabilization of mood however, the patient's nephew/DPOA did not wish to proceed with this adjustment. If in the future we maxed out on quetiapine at 300 mg/day may consider addition of Abilify and possibly slow tapering discontinuation of quetiapine for management. However, at the present time the patient has had a positive response. Will remain off Namenda as this did not contribute to control of her behavioral disturbances. Given the patient's advanced age, dementia and chronic comorbidities a gradual decline is expected. CPT 74154 Discussed plan of care with EVA Davis had no further dose adjustments at this time. Contacted the patient's nephew/DPOA Urbano at [phone] and discussed findings after recent dose adjustment approximately 4 weeks ago with positive response. Supportive listening provided to the the patient's nephew with questions answered and addressed. Disclaimer: The chart note was formulated using voice recognition technology and unfortunately sound alike errors may occur.
== END 2020-11-22 16:21 | disposition home or self-care (01) ==
LOC: PC 16:20
PROVIDERS: ATTEND Nurse Practitioner Family
DX: Z51.5 Encounter for palliative care (principal); F03.91 Unspecified dementia, unspecified severity, with behavioral disturbance; Z66 Do not resuscitate

== ENCOUNTER 2021-03-13 14:00 | Outpatient (CLI) | payer MEDICARE, MEDICAID ==
--- NOTE | 2021-03-13 19:24 | CONSULTATION NOTE ---
Palliative Care Follow Up - Referral Referring Provider: RAMEZ Durand Time of Visit: Initiated 1400 Referral setting: Assisted living Referral Reason: Lesion on neck/Dementia with behavior - Information Sources Records reviewed: Previous records reviewed History/Review of Systems obtained from: Patient, Caregiver, Nursing Exam limitations: Clinical condition (Advanced dementia) - History of Present Illness Update Brief HPI Update: This is an 80-year-old female who was seen and evaluated at [facility] for evaluation of dementia with behavioral disturbances and lesion to right neck. Provider worn N95 mask. On Saturday, a lesion was noted to the patient's right side of her neck. She has been picking at it and there has been some noted discharge. Nursing reports some increased redness. The patient herself denies any discomfort when touching it. The patient has a history of being agitated and combative with underlying paranoia. She was hospitalized at [facility] in [place] for approximately 1 month due to multiple circumstances before [facility] memory care admission in September 2019. While at [facility] she was titrated up on quetiapine was also receiving Zyprexa for management of her behaviors. She was also on doxepin for sleep. The patient is no longer on doxepin or Zyprexa. She presently remains on quetiapine 75 mg in the morning, 50 mg in the afternoon, 150 mg in the evening. Last dose adjustment of quetiapine in October 2020. Facility reports that the patient is now allowing caregivers to assist with toileting and bathing. No longer having any resistance. She has also moved rooms and is sleeping well on her new bed. She also allow podiatry to see her on 01/30. Upon review of MAR she has not required any as needed doses of lorazepam. She was on Namenda from August 2020 to 11/02/2020 after discontinuation of Namenda staff and nursing have not noticed any increased behavioral disturbances. Patient is seen in [facility] with no evidence of acute distress. Past Medical History: Patient has a past medical history of SMA stenosis, myocardial infarction x2 with stenting, coronary artery disease, hypertension, peripheral arterial disease, agitation, hearing loss, dementia. Social History - Living Situation Living arrangement: Assisted living Support System: The patient is never and has no children. Her health care management has fallen to her nephew, Urbano Bolanos at [phone] her is her designated DPOA. [facility]. The patient has been on [place] PES and has a sed special education teacher, Betty at [phone]. Medications/Allergies - Medications Home Medications: Ambulatory Orders Medication Instructions Recorded Confirmed Acetaminophen [Tylenol] 325 mg PO Q6H PRN 11/03/19 06/14/20 Aspirin 81 mg PO DAILY 11/03/19 06/14/20 Bisacodyl Supp [Dulcolax Supp] 10 mg NM DAILY PRN MDD if no BM 11/03/19 06/14/20 after MOM Carvedilol [Coreg] 12.5 mg PO BID 11/03/19 06/14/20 LORazepam [Ativan] 0.5 mg PO Q8H PRN 11/03/19 06/14/20 Lisinopril [Zestril] 5 mg PO DAILY 11/03/19 06/14/20 Loperamide [Imodium] PRN MDD NTE 8tabs/day 11/03/19 Magnesium Hydroxide [Milk of 30 ml PO DAILY PRN MDD if NO BM in 11/03/19 06/14/20 Magnesia] 3 days Quetiapine Fumarate 50 mg PO .MIDDAY 11/03/19 06/14/20 Quetiapine Fumarate 150 mg PO QPM 11/03/19 06/14/20 Rosuvastatin Calcium 10 mg PO DAILY 11/03/19 06/14/20 Nystatin 1 applic TP BID 12/18/19 03/09/20 Remedy Skin Repair Cream 1 applic TP DAILY 06/14/20 QUEtiapine [SEROquel] 75 mg PO .MORNING 11/22/20 11/22/20 Doxycycline Hyclate 100 mg PO BID MDD x7 days 03/15/21 03/15/21 - Allergies Allergies/Adverse Reactions: Allergies Allergy/AdvReac Type Severity Reaction Status Date / Time Penicillins Allergy Unknown Verified 06/14/20 17:35 Review of Systems - Constitutional Constitutional: reports: Other (03/08/2021 175.6lb; weight 175.2lb 10/05/2020). denies: Fever - Ears, Nose & Throat Ears, Nose & Throat: reports: Hearing loss. denies: Hearing aids - Cardiovascular Cardiovascular: reports: Edema (ordered compression stockings). denies: Chest pain - Respiratory Respiratory: denies: Cough - Gastrointestinal Gastrointestinal: reports: Good appetite. denies: Constipation (controlled with bowel regimen), Diarrhea, Vomiting - Genitourinary Genitourinary: reports: Incontinence. denies: Dysuria - Integumentary Integumentary: reports: Other (lesion to right neck with discharge and redness) - Neurological Neurological: reports: Memory problems. denies: Headache - Psychiatric Psychiatric: reports: Anxiety, Aggitation (improved see HPI), Behavior disturbances - Hematologic/Lymphatic Hematologic/Lymph: denies: Recurrent infections - All Other Systems All Other Systems: reports: Reviewed and negative (ROS is limited as patient is a poor historian due to dementia. ROS supplemented by nursing.) Physical Exam - Vital Signs Temperature: 36.9 C Pulse Rate: 70 Blood Pressure: 128/60 - Physical Exam General Appearance: positive: No acute distress, Alert, Other (appears stated age, obese with new short hair cut) Eyes Bilateral: positive: Normal inspection ENT: positive: Other (missing teeth) Neck: positive: Trachea midline Cardiovascular: positive: Regular rate & rhythm Respiratory: positive: No respiratory distress, Breath sounds nml Abdomen: positive: Non-tender, Soft, Nml bowel sounds, Obese Skin: positive: Other (Elevated induration c/w a sebacous cyst to right base of neck 1cm x 1cm with pinpoint centrally with yellow drainaged with surrounding erythema of 4cm , slight warmth and nontender to palpation) Extremities: positive: Pedal edema (+1 BLE edema) Neurologic/Psychiatric: positive: Disoriented to place, Disoriented to time, Other (No agitation,engaged,+confabulated stories,no paranoia on assessment today) Palliative Care - POLST Patient has POLST: Yes POLST Status: DNR, Selective Treatment Pain: No pain - Palliative Care Discussion: Patient with lesion to right base of her neck consistent with a sebaceous cyst with surrounding cellulitis. Would benefit from initiation of oral antibiotic therapy. If does not resolve then would benefit from surgical evaluation for removal and this was reviewed with the patient's nephew/DPOA. Patient is a longstanding history of dementia with behavioral disturbances with underlying agitation, paranoia and resistance to care.Presently behaviors are controlled with 275 mg of quetiapine daily in divided doses. She is no longer displaying resistance to care and appears to be comfortable. Would not make any further dose adjustments at this time. Impression and Recommendations - Palliative Care Impression: This is an 80-year-old female with dementia with a history of being agitated, combative with increasing paranoia and resistance to care presently well controlled with present dose of quetiapine and appears to be comfortable with reduction in her anxiety. Development of sebaceous cyst to base of right neck with underlying cellulitis that would benefit from initiation of oral antibiotic therapy. Palliative care to continue provide support for symptom management, care coordination and anticipatory guidance. Recommendations/Counseling Done: 1. Sebaceous cyst with cellulitis. Noted to right base of neck 1 cm x 1 cm with discharge. Initiate doxycycline 100 mg tablet twice daily x7 days for cellulitis. Request that warm compress to be applied to the site for 10 minutes 3 times per day x4 days. Recommendation made to apply a Band-Aid to the affected site daily and as needed if soiled for 7 days to prevent the patient from touching the area and reintroducing bacteria due to her underlying dementia. If cyst persists or develop spreading redness or increased tenderness advised to make PCP aware after antibiotic therapy. Patient may require surgical removal to prevent recurrence and this was reviewed with DPOA/nephew. 2. Dementia with behavioral disturbances. Symptoms well controlled with present regimen of quetiapine. Chronic. Progressive. Fall precautions. Has tolerated discontinuation of Namenda as this did not contribute to control of behavioral disturbances. Given the patient's advanced age, dementia and chronic comorbidities a gradual decline is expected. CPT 15631 Discussed, pair with EVA Davis with questions answered and addressed. Contacted the patient's nephew/DPOA at [phone] and discussed examination findings and initiation of antibiotic therapy x7 days with understanding verbalized and questions answered and addressed. Disclaimer: The chart note was formulated using voice recognition technology and unfortunately sound alike errors may occur.
== END 2021-03-13 14:01 | disposition home or self-care (01) ==
LOC: PC 14:00
PROVIDERS: ATTEND Nurse Practitioner Family
DX: Z51.5 Encounter for palliative care (principal); F03.91 Unspecified dementia, unspecified severity, with behavioral disturbance; L72.3 Sebaceous cyst; L03.221 Cellulitis of neck; I10 Essential (primary) hypertension; I25.10 Atherosclerotic heart disease of native coronary artery without angina pectoris; I73.9 Peripheral vascular disease, unspecified; H91.90 Unspecified hearing loss, unspecified ear; R32 Unspecified urinary incontinence; F41.9 Anxiety disorder, unspecified; Z66 Do not resuscitate; Z79.82 Long term (current) use of aspirin; Z79.899 Other long term (current) drug therapy; I25.2 Old myocardial infarction; Z95.5 Presence of coronary angioplasty implant and graft

== ENCOUNTER 2021-07-26 13:00 | Outpatient (CLI) | payer MEDICARE, MEDICAID ==
--- NOTE | 2021-07-26 14:45 | CONSULTATION NOTE ---
Palliative Care Follow Up - Referral Referring Provider: RAMEZ Ortiz Time of Visit: Initiated 1300 Referral setting: Assisted living Referral Reason: Dementia with behavior - Information Sources Records reviewed: Previous records reviewed History/Review of Systems obtained from: Caregiver, Nursing Exam limitations: Clinical condition (Advanced Dementia) - History of Present Illness Update Brief HPI Update: This is an 80-year-old female who was seen and evaluated today at [facility] care for follow-up regarding dementia with behavioral disturbances. Provider wore N95 mask. The patient has a history of being agitated and combative with underlying paranoia. She was hospitalized at [facility] in [place] for approximately 1 month due to multiple circumstances before [facility] 2019. While at [facility] she was titrated up on quetiapine and was also receiving Zyprexa for management of her behaviors. She was also on doxepin for sleep. She is no longer on doxepin or Zyprexa. On last evaluation the patient was noted to have had stability with her agitation and mood due to underlying dementia. She is presently on quetiapine 75 mg in the morning, 50 mg in the afternoon, and 150 mg in the evening. Review of MAR does not reveal that she has required any as needed doses of lorazepam. She is amenable to certain facility staff with allowing assistance. Other staff depends on their approach if she will allow. Care or redirection. Patient is seen in the common area, watching a nature program with no evidence of acute distress. Past Medical History: Patient has a past medical history of SMA stenosis, myocardial infarction x2 with stenting, coronary artery disease, hypertension, peripheral arterial disease, agitation, hearing loss, dementia. +COVID-19 06/22/2021 Social History - Living Situation Living arrangement: Assisted living Support System: The patient is never and has no children. Her health care management has fallen to her nephew, Urbano Bolanos at [phone] her is her designated DPOA. [facility]. The patient has been on [place] PES and has a early childhood lead teacher, Betty at [phone]. Urbano calls the patient a few times a week but she is not engaged any more and he perceives that she has forgotten who he is. During the entire time the patient has been in [facility], her nephew has not been able to visit. Medications/Allergies - Medications Home Medications: Ambulatory Orders Medication Instructions Recorded Confirmed Acetaminophen [Tylenol] 325 mg PO Q6H PRN 11/03/19 06/14/20 Aspirin 81 mg PO DAILY 11/03/19 06/14/20 Bisacodyl Supp [Dulcolax Supp] [address] DAILY PRN MDD if no BM 11/03/19 06/14/20 after MOM Carvedilol [Coreg] 12.5 mg PO BID 11/03/19 06/14/20 LORazepam [Ativan] 0.5 mg PO Q8H PRN 11/03/19 06/14/20 Lisinopril [Zestril] 2.5 mg PO DAILY 11/03/19 06/14/20 Loperamide [Imodium] PRN MDD NTE 8tabs/day 11/03/19 Magnesium Hydroxide [Milk of 30 ml PO DAILY PRN MDD if NO BM in 11/03/19 06/14/20 Magnesia] 3 days Quetiapine Fumarate 50 mg PO .MIDDAY 11/03/19 06/14/20 Quetiapine Fumarate 150 mg PO QPM 11/03/19 06/14/20 Rosuvastatin Calcium 10 mg PO DAILY 11/03/19 06/14/20 Nystatin 1 applic TP BID 12/18/19 03/09/20 Remedy Skin Repair Cream 1 applic TP DAILY 06/14/20 QUEtiapine [SEROquel] 75 mg PO .MORNING 11/22/20 11/22/20 Doxycycline Hyclate 100 mg PO BID MDD x7 days 03/15/21 03/15/21 - Allergies Allergies/Adverse Reactions: Allergies Allergy/AdvReac Type Severity Reaction Status Date / Time Penicillins Allergy Unknown Verified 06/14/20 17:35 Review of Systems - Constitutional Constitutional: reports: Weight loss (07/26/2021 162.8lb; 03/08/2021 175.6lb; weight 175.2lb 10/05/2020). denies: Fever - Eyes Eyes: denies: Irritation - Ears, Nose & Throat Ears, Nose & Throat: reports: Hearing loss. denies: Hearing aids, Dentures - Cardiovascular Cardiovascular: reports: Edema (+compression stockings). denies: Chest pain - Respiratory Respiratory: denies: Cough - Gastrointestinal Gastrointestinal: reports: Good appetite. denies: Abdominal pain, Constipation (controlled with bowel regimen), Vomiting - Genitourinary Genitourinary: reports: Incontinence. denies: Dysuria - Musculoskeletal Musculoskeletal: denies: Assistive devices - Integumentary Integumentary: reports: Rash (occasional need for nystatin powder) - Neurological Neurological: reports: Memory problems. denies: Headache - Psychiatric Psychiatric: reports: Anxiety, Aggitation (see HPI), Behavior disturbances - All Other Systems All Other Systems: reports: Reviewed and negative (ROS is limited as patient is a poor historian due to dementia. ROS supplemented by nursing.) Physical Exam - Vital Signs Temperature: 36.9 C Pulse Rate: 78 O2 Saturation: 95 (on RA) Blood Pressure: 128/62 - Physical Exam General Appearance: positive: No acute distress, Alert, Other (appears stated age, obese seen in common area) Eyes Bilateral: positive: Normal inspection ENT: positive: Other (missing teeth) Neck: positive: Trachea midline Cardiovascular: positive: Regular rate & rhythm Respiratory: positive: No respiratory distress, Breath sounds nml. negative: Wheezes Abdomen: positive: Non-tender, Soft, Nml bowel sounds, Obese Skin: positive: Dryness Extremities: positive: Pedal edema (+1 BLE edema with compression stockings in place) Neurologic/Psychiatric: positive: Disoriented to place, Disoriented to time, Other (No agitation,engaged,+confabulated stories, allowed for assessment when in the past she will be resistant and push this provider away) Palliative Care - POLST Patient has POLST: Yes POLST Status: DNR, Selective Treatment Pain: No pain Performance Status: FAS T6D - Palliative Care Discussion: Patient has longstanding history of dementia with behavioral disturbances with underlying agitation and paranoia with resistance to care. Presently behaviors are controlled with 275 mg of quetiapine daily in divided doses. Depending on how caregivers approach her the patient is experiencing much more at ease with her engagement with caregivers in regards to hygiene and care. Her nephew,Urbano, is expressing concerns of the patient no longer recognizes him when he called several times during the week. Lengthy discussion was had with supportive listening with the nephew in regards to progression of dementia especially cognitively has at the present time, the patient continues to have functional status. Urbano recognizes that the patient is "there but not there." There is some additional things that he would prefer to have the patient have access to such as a TV to watch old movies however, the facility does not allow this. Encourage Urbano to continue to do what feels right for him in regards to his engagement with the patient moving forward. Impression and Recommendations - Palliative Care Impression: This is an 80-year-old female with dementia with a history of being agitated, out of with increasing paranoia and resistance to care presently controlled with dose of quetiapine. No evidence of anxiety or resistance to examination today. She continues to have a slow, gradual cognitive decline. Supportive and empathetic listening provided today to the patient's nephew/DPOA. Palliative care to continue provide support for symptom management, care coordination and anticipatory guidance. Recommendations/Counseling Done: 1. Dementia with behavioral disturbances. Patient's behaviors presently controlled with quetiapine 75 mg in the morning, 50 mg in the afternoon and 150 mg at bedtime. Had previously discussed use of Depakote at a low dose for stabilization of mood however, the patient's nephew/DPOA did not wish to proceed with this adjustment. If in the future we maxed out on quetiapine at 300 mg/day may consider addition of Abilify and possibly slowly tapering dose chintan nuation of quetiapine for management. At the present time, the patient remained stable. No longer on Namenda. Given the patient's advanced age, dementia and chronic comorbidities a gradual Landa is expected. 2. Grief. Patient's nephew/DPOA demonstrates awareness of grief and loss surrounding an individual and loved 1 with dementia. Normalized the nephew's feelings today and follow-up. Nephew continues to be in contact with the family and regards to the patient's overall clinical status. Supportive empathetic listening provided today. 3. Bilateral lower extremity edema. Remains at baseline. Continue bilateral lower extremity compression hose to be applied in the morning and removed in the evening. No history of congestive heart failure. 4. Advanced care planning. Patient has POLST in place as DN AR with selective interventions. Discussed progression of dementia today with patient's nephew/stated DPOA and reviewed the length of time a individual can be of dementia before noted decline or potential of that that would warrant a transition to hospice services. We will continue to communicate to the patient's DPOA/nephew regarding any changes. Support appreciated. CPT 28701. Contacted the patient's nephew/data FRANKY Bolanos at [phone] and reviewed plan of care and present findings with appreciation of support. Disclaimer: The chart note was formulated using voice recognition technology and unfortunately sound alike errors may occur.
== END 2021-07-26 13:01 | disposition home or self-care (01) ==
LOC: PC 13:00
PROVIDERS: ATTEND Nurse Practitioner Family
DX: Z51.5 Encounter for palliative care (principal); F03.91 Unspecified dementia, unspecified severity, with behavioral disturbance; F43.21 Adjustment disorder with depressed mood; R60.0 Localized edema; Z66 Do not resuscitate